=== PATIENT | male | born 1985 | race Hispanic/Latino ===

== ENCOUNTER 2016-05-25 14:59 | Emergency (ER) | payer OTHER ==
[2016-05-25 15:09] VITALS: BP 188/129
--- NOTE | 2016-05-25 15:24 | Emergency Department Report ---
Chief Complaint: Recheck/Abnormal Lab/Rx Stated Complaint: LABWORK Time Seen by Provider: 05/25/16 15:18 - HPI History of Present Illness: 31 y/o male with no complaint .[facility] .pt current hypertension at 188/129 .pt state that he is non compliance with lisinopril .pt state he has not taken medication in the last 2years.pt state he "do not want any medication for blood pressure" at present .pt denies any headache ,blurry vision or nausea/diarrhea. - ROS Review of Systems: per HPI - Exam Vital Signs: Vital Signs 05/25/16 15:02 Temperature 98.7 F Pulse Rate 95 H Respiratory 16 Rate Blood Pressure 188/129 O2 Sat by Pulse 97 Oximetry Physical Exam: GENERAL: The patient is well-developed and well-nourished. Patient is in NAD. HENT: Normocephalic. Atraumatic. Patient has moist mucous membranes. Throat: No erythema, swelling or exudates. EYES: Extraocular motions are intact, PERRL NECK: Supple. No meningitic signs are noted. There is no adenopathy noted. CHEST/LUNGS: Clear to auscultation bilaterally. No wheezing, rales or rhonchi noted. There is no respiratory distress noted. HEART/CARDIOVASCULAR: Regular rate and rhythm. Normal S1 S2. No murmurs, rubs , clicks, or gallops. ABDOMEN: Abdomen is soft, nontender.. Bowel sounds normoactive. There is no abdominal distention. Negative rebound tenderness. : Deferred. SKIN: There is no rash. There is no edema. There is no diaphoresis. NEURO: The patient is A&Ox3. The patient has no focal neurologic deficits. MUSCULOSKELETAL: There is no tenderness or deformity. There is no limitation range of motion. PSYCH: Pt has appropriate mood and affect. MSE screening note: Focused history and physical exam performed. Due to findings the following was ordered: ED Disposition for MSE Condition: Stable
== END 2016-05-25 16:38 | disposition home or self-care (01) ==
LOC: ED 14:59 → EEVIPCON 14:59 → ED 16:38
DX: I10 Essential (primary) hypertension (principal); Z53.21 Procedure and treatment not carried out due to patient leaving prior to being seen by health care provider